=== PATIENT | female | born 1945 | race Caucasian/White ===

== ENCOUNTER 2018-09-16 21:38 | Observation (INO) ==
[2018-09-16] MEDS ORDERED: Ipratropium/Albuterol Neb 3 ML IH ONE (21:57)
[2018-09-16] MEDS ORDERED: methylPREDNISolone 125 MG/2 ML VIAL IVP ONE (22:03)
--- NOTE | 2018-09-16 22:06 | Emergency Department Note ---
Disposition Clinical Impression: Bronchitis, Pulmonary nodules, Mucus plugging of bronchi, Hypoxia Asthma with exacerbation Qualifiers: Asthma severity: unspecified severity Asthma persistence: unspecified Qualified Code(s): J45.901 - Unspecified asthma with (acute) exacerbation Dyspnea Qualifiers: Dyspnea type: unspecified Qualified Code(s): R06.00 - Dyspnea, unspecified Disposition: Admitted As Inpatient Condition: Fair Time of Disposition: 00:19 SOB HPI - General Chief Complaint: ED Shortness of Breath/Dyspnea Stated Complaint: romeo put her husbands o2 on Time Seen by Provider: 09/16/18 21:48 Source: patient Mode of arrival: wheelchair Limitations: no limitations Nursing Notes Reviewed: Yes Vital Signs Reviewed: Yes - History of Present Illness Patient is a 73-year-old female with past medical history of asthma. She presents today due to concern for shortness of breath, dry cough for the past month. She denies any smoking history, denies any COPD history, denies any history of CHF. She states that she has followed up with primary care physician 3 times over the past month. She states that she has been on a course of azithromycin, doxycycline, received Rocephin and also was recently started on c efdinir within the past week. She states that despite all these medications, she has no improvement in her symptoms. She does have albuterol at home that she uses for asthma occasionally and says that this is not helping either. She states that tonight, she borrowed her 's oxygen and has been wearing 4 L that has mildly helped with shortness of breath. She also took one tablet of his prednisone 20 mg. Denies any other leg swelling, calf pain, chest pain, fevers, nausea, vomiting, abdominal pain. She does state that she is very fatigued, especially when walking and exerting herself. - Related Data Home Medications Medication Instructions Recorded Confirmed Cetirizine HCl [Zyrtec] 10 mg PO DAILY 09/17/18 09/17/18 Furosemide [Lasix] mg PO DAILY 09/17/18 Losartan/Hydrochlorothiazide 12.5 mg PO DAILY 09/17/18 09/17/18 [Losartan-Hctz 100-12.5 mg Tab] Pantoprazole Sodium [Protonix] 40 mg PO DAILY 09/17/18 09/17/18 metFORMIN [Glucophage] 1,000 mg PO BID 09/17/18 09/17/18 Allergies Allergy/AdvReac Type Severity Reaction Status Date / Time propoxyphene [From Darvon] Allergy Difficulty Verified 09/16/18 21:40 Breathing valdecoxib [From Bextra] Allergy See Verified 09/16/18 21:40 Comments acetaminophen [From [place]] AdvReac Agitated Verified 09/16/18 21:40 cefdinir AdvReac Vomiting Verified 09/17/18 02:08 gabapentin [From Neurontin] AdvReac Drowsy Verified 09/16/18 21:40 hydrocodone [From [place]] AdvReac Agitated Verified 09/16/18 21:40 meperidine [From Demerol] AdvReac Drowsy Verified 09/16/18 21:40 tramadol AdvReac See Verified 09/16/18 21:40 Comments IVP dye Allergy See Uncoded 09/16/18 21:40 Comments lido/epi numbing nasal spray Allergy See Uncoded 09/16/18 21:40 Comments All systems ED: reviewed and negative except as stated. Constitutional: Denies: fever Cardiovascular: Denies: chest pain Respiratory: Reports: cough, dyspnea, wheezes. Denies: sputum production Gastrointestinal: Denies: abdominal pain, nausea, vomiting, diarrhea Genitourinary: Denies: urgency, dysuria Endocrine: Reports: fatigue Past Medical History - Past Medical History Attestation: Yes The following information was validated with the patient. Source: patient Medical history: Reports: diabetes, hypertension - Social History Smoking Status: Never smoker Alcohol use: Reports: none Drug use: Reports: none Physical Exam - General Limitations: no limitations General appearance: alert, other (midl to moderate resp distress) - Head Head exam: atraumatic, normocephalic, normal inspection - Eye Eye exam: Present: normal appearance, PERRL, EOMI - ENT ENT exam: normal exam, normal oropharynx, mucous membranes moist - Neck Neck exam: Present: normal inspection, full ROM, trachea midline - Chest Chest inspection: Present: normal inspection, symmetric chest wall rise - Respiratory Respiratory exam: Present: other (wheezing and rhonchi throughout) - Cardiovascular Cardiovascular exam: Present: regular rate, normal rhythm, normal heart sounds - Abdominal Exam Abdominal exam: Present: soft, Non-Tender. Absent: tenderness, distention, guarding, rebound, rigidity - Extremities Exam Extremities exam: Present: normal inspection, full ROM. Absent: tenderness, pedal edema, calf tenderness - Neurological Exam Neurological exam: Present: alert, oriented X3 - Psychiatric Psychiatric exam: Present: normal affect, normal mood - Skin Skin exam: Present: warm, dry, intact, normal color Course Course Narrative: Patient was hypertensive and satting 95% on 4L NC O2. We will continue to monitor. Otherwise, the rest of vitals within normal limits. Physical exam markos ws wheezing or rhonchi throughout all lung cuevas. Heart regular rate and rhythm. No extremity swelling or calf tenderness. Abdomen exam within normal limits. We will give the patient Solu-Medrol and DuoNeb times. We will obtain EKG, chest x-ray, basic blood work, troponin level. Patient does have some increased work of breathing but not enough to require BiPAP at this time. EKG shows sinus rhythm with right bundle branch block. No other acute ST elevation or depression. Right bundle branch block is seen on previous EKG on 12/08/2017. 23:44 no elevation white blood cell count. Troponin negative. CT noncontrast of the chest was ordered. Did not order a CTA due to patient having an iodine allergy. There are pulmonary nodules, mucous plugging. No definite pneumonia seen. Patient was reassessed. After breathing treatment she is satting 91% and becoming mildly short of breath when talking. She is placed on 2 L nasal cannula. Currently waiting on repeat blood pressure. Discussed admission for further breathing treatments and steroids. She was agreeable with this plan. We will admit for further care. I do not feel the patient likely has a PE at this time as she does have reasons to be hypoxic with bronchitis type changes, mucous plugging, and also has rhonchi and wheezing on exam. This was discussed with the hospitalist. If patient has continued symptoms despite treatment, patient may require a VQ scan for further assessment. Chest X-Ray 09/16/18 21:56 IMPRESSION: No acute cardiopulmonary findings. Unchanged moderate-sized hiatus hernia. D/ / Vicente Hodgson / Vicente Hodgson Interpreting Provider: Vicente Hodgson Chest CT 09/16/18 22:39 IMPRESSION: Mild emphysema. There are a few new pulmonary nodules, which were not clearly seen previously, the largest of which is seen in the right lower lobe. Recommend PET-CT for further characterization Scattered areas of bronchial wall thickening and mucous plugging are seen, greatest in the right lower lobe. A few band like opacities are seen suggesting subsegmental atelectasis or scar. No focal pneumonia noted. Moderate size hiatal hernia D/ / Dawit Harley MD / Dawit Harley MD Interpreting Provider: Dawit Harley MD Vital Signs Temperature 97.5 F L 09/16/18 21:40 Pulse Rate 92 09/16/18 21:40 Respiratory Rate 16 09/16/18 21:40 Blood Pressure 200/133 09/16/18 21:40 O2 Sat by Pulse Oximetry 95 09/16/18 21:40 Temperature 97.5 F L 09/16/18 21:40 Pulse Rate 94 09/16/18 22:02 Respiratory Rate 16 09/16/18 23:08 Blood Pressure 194/93 09/16/18 22:02 O2 Sat by Pulse Oximetry 97 09/16/18 23:08 Oxygen Delivery Oxygen Delivery Room Air Shortness of Breath/Dyspnea - MDM Narrative Medical decision making narrative: Patient was hypertensive and satting 95% on 4L NC O2. We will continue to monitor. Otherwise, the rest of vitals within normal limits. Physical exam shows wheezing or rhonchi throughout all lung cuevas. Heart regular rate and rhythm. No extremity swelling or calf tenderness. Abdomen exam within normal limits. We will give the patient Solu-Medrol and DuoNeb times. We will obtain EKG, chest x-ray, basic blood work, troponin level. Patient does have some increased work of breathing but not enough to require BiPAP at this time. EKG shows sinus rhythm with right bundle branch block. No other acute ST elevation or depression. Right bundle branch block is seen on previous EKG on 12/08/2017. 23:44 no elevation white blood cell count. Troponin negative. CT noncontrast of the chest was ordered. Did not order a CTA due to patient having an iodine allergy. There are pulmonary nodules, mucous plugging. No definite pneumonia seen. Patient was reassessed. After breathing treatment she is satting 91% and becoming mildly short of breath when talking. She is placed on 2 L nasal cannula. Currently waiting on repeat blood pressure. Discussed admission for further breathing treatments and steroids. She was agreeable with this plan. We will admit for further care. I do not feel the patient likely has a PE at this time as she does have reasons to be hypoxic with bronchitis type changes, mucous plugging, and also has rhonchi and wheezing on exam. This was discussed with the hospitalist. If patient has continued symptoms despite treatment, patient may require a VQ scan for further assessment. - Medical Records Medical records reviewed: Yes I reviewed the patient's medical records. - Lab Data Lab results reviewed: Yes I reviewed the patient's lab results. Result diagrams: 09/16/18 22:09 09/16/18 22:09 Lab Results 09/16/18 09/16/18 09/16/18 Range/Units 22:09 22:09 22:09 WBC 11.1 (4.3-11.1) K/mcL RBC 4.74 (3.82-4.97) M/mcL Hgb 12.6 (11.5-15.4) g/dL Hct 39.5 (35.3-44.9) % MCV 83.3 (83.0-100.0) fL MCH 26.6 L (28.0-33.3) pg MCHC 31.9 (31.6-35.5) g/dL RDW 14.3 (11.5-14.5) % Plt Count 292 (140-400) K/mcL MPV 10.7 (9.4-12.4) fL Immature Gran % 0.4 (0-4) % Seg Neutrophils % 63.7 % Lymphocytes % 25.0 % Monocytes % 4.2 % Eosinophils % 6.0 % Basophils % 0.7 % Neutrophils # 7.1 (1.6-8.9) K/mcL Lymphocytes # 2.8 (0.6-4.6) K/mcL Monocytes # 0.5 (0.0-1.3) K/mcL Eosinophils # 0.7 H (0.0-0.6) K/mcL Basophils # 0.1 (0.0-0.2) K/mcL VBG pH (7.32-7.42) pH Units VBG pCO2 (41-51) mmHg VBG pO2 (25-50) mmHg VBG HCO3 (21-27) mEq/L Sodium 136 (136-145) mEq/L Potassium 3.7 (3.5-5.1) mEq/L Chloride 104 (98-107) mEq/L Carbon Dioxide 24 (23-29) mEq/L BUN 12 (8-23) mg/dL Creatinine 0.59 L (0.60-1.20) mg/dL Est GFR ( Amer) > 60 (> 60) Est GFR (Non-Af Amer) > 60 (> 60) BUN/Creatinine Ratio 20 (6-26) Glucose 183 H (70-105) mg/dL Calculated Osmolality 286 (280-300) Lactic Acid 2.2 (0.5-2.2) mmol/L Calcium 9.4 (8.6-10.3) mg/dL Troponin I < 0.03 (< 0.04) ng/mL B-Natriuretic Peptide (Less than 100) pg/mL 09/16/18 09/16/18 Range/Units 22:09 22:35 WBC (4.3-11.1) K/mcL RBC (3.82-4.97) M/mcL Hgb (11.5-15.4) g/dL Hct (35.3-44.9) % MCV (83.0-100.0) fL MCH (28.0-33.3) pg MCHC (31.6-35.5) g/dL RDW (11.5-14.5) % Plt Count (140-400) K/mcL MPV (9.4-12.4) fL Immature Gran % (0-4) % Seg Neutrophils % % Lymphocytes % % Monocytes % % Eosinophils % % Basophils % % Neutrophils # (1.6-8.9) K/mcL Lymphocytes # (0.6-4.6) K/mcL Monocytes # (0.0-1.3) K/mcL Eosinophils # (0.0-0.6) K/mcL Basophils # (0.0-0.2) K/mcL VBG pH 7.42 (7.32-7.42) pH Units VBG pCO2 41 (41-51) mmHg VBG pO2 77 H (25-50) mmHg VBG HCO3 26 (21-27) mEq/L Sodium (136-145) mEq/L Potassium (3.5-5.1) mEq/L Chloride (98-107) mEq/L Carbon Dioxide (23-29) mEq/L BUN (8-23) mg/dL Creatinine (0.60-1.20) mg/dL Est GFR ( Amer) (> 60) Est GFR (Non-Af Amer) (> 60) BUN/Creatinine Ratio (6-26) Glucose (70-105) mg/dL Calculated Osmolality (280-300) Lactic Acid (0.5-2.2) mmol/L Calcium (8.6-10.3) mg/dL Troponin I (< 0.04) ng/mL B-Natriuretic Peptide 14 (Less than 100) pg/mL - Radiology Data Radiology results reviewed: Yes I reviewed the patient's radiology results. Chest X-Ray 09/16/18 21:56 IMPRESSION: No acute cardiopulmonary findings. Unchanged moderate-sized hiatus hernia. D/ / Vicente Hodgson / Vicente Hodgson Interpreting Provider: Vicente Hodgson Chest CT 09/16/18 22:39 IMPRESSION: Mild emphysema. There are a few new pulmonary nodules, which were not clearly seen previously, the largest of which is seen in the right lower lobe. Recommend PET-CT for further characterization Scattered areas of bronchial wall thickening and mucous plugging are seen, greatest in the right lower lobe. A few band like opacities are seen suggesting subsegmental atelectasis or scar. No focal pneumonia noted. Moderate size hiatal hernia D/ / Dawit Harley MD / Dawit Harley MD Interpreting Provider: Dawit Harley MD - EKG Data EKG attestation: Yes I reviewed and interpreted this EKG. EKG results narrative: 09/16/2018 at 21:57. Sinus tach. Rate 104. OH 148. QRS 138. QTC 498. Normal axis. No acute ST elevation or depression. EKG shows right bundle branch block. No other acute ST elevation or depression. Right bundle branch block is seen on previous EKG on 12/08/2017 Evelia - Evelia Situation: Demographics, MOA Background: Presenting Complaint, Relevant PMH, Meds, & Allergies Assessment: Vital Signs, Course and respsone to treatment, Exam Concerns, Patient/Family Expectation, Pertinant Lab Results, Outstanding Labs Recommendation: Barrier(s) to disposition, Recommendation based on pending studies, treatments, or consults Evelia Report Given to: Dr. Leonard Altamirano Repor Time: 00:19 Attestation Statement - Attestation Attestation: I have seen this patient with the resident physician, I have personally evaluated this patient. I had reviewed the chart and document dictation by the resident physician and aM in agreement with the information documented by the resident physician. Please see documentation by the resident physician for complete chart including past medical history, family medical history, review of systems, current history and physical and laboratory and imaging studies. I was present for all procedures, provided direct supervision for all procedures, was present for the entirety of all procedures and provided direct guidance during the procedures. Please see documentation by the resident physician for any procedures performed.
[2018-09-16 22:36] LABS: Basophils # 0.1 K/mcL (0.0-0.2); Basophils % 0.7 %; Eosinophils # 0.7 K/mcL (0.0-0.6); Hematocrit 39.5 % (35.3-44.9); Hemoglobin 12.6 g/dL (11.5-15.4); Immature Granulocytes % 0.4 % (0-4); Lymphocytes # 2.8 K/mcL (0.6-4.6); Mean Corpuscular HGB Conc 31.9 g/dL (31.6-35.5); Mean Corpuscular Hemoglobin 26.6 pg (28.0-33.3); Mean Corpuscular Volume 83.3 fL (83.0-100.0); Mean Platelet Volume 10.7 fL (9.4-12.4); Monocytes # 0.5 K/mcL (0.0-1.3); Monocytes % 4.2 %; Neutrophils # 7.1 K/mcL (1.6-8.9); Platelet Count 292 K/mcL (140-400); Red Blood Count 4.74 M/mcL (3.82-4.97); Red Cell Distribution Width 14.3 % (11.5-14.5); Segmented Neutrophils % 63.7 %
[2018-09-16 22:38] LABS: VBG HCO3 26 mEq/L (21-27); VBG PCO2 41 mmHg (41-51); VBG PH 7.42 pH Units (7.32-7.42); VBG PO2 77 mmHg (25-50)
[2018-09-16] MEDS ORDERED: Isovue-370 500 ML BOTTLE IVP ONE (22:39)
[2018-09-16 22:56] LABS: BUN/Creatinine Ratio 20 (6-26); Blood Urea Nitrogen 12 mg/dL (8-23); Calcium 9.4 mg/dL (8.6-10.3); Carbon Dioxide 24 mEq/L (23-29); Chloride 104 mEq/L (98-107); Glucose 183 mg/dL (70-105); Osmolality,Calculated 286 (280-300); Potassium 3.7 mEq/L (3.5-5.1); Sodium 136 mEq/L (136-145); eGFR For Non-African Americans > 60 (> 60)
[2018-09-16 22:57] LABS: Troponin I < 0.03 ng/mL (< 0.04)
--- NOTE | 2018-09-16 23:39 | Emergency Department Note ---
Disposition Clinical Impression: Asthma with exacerbation, Bronchitis Disposition: Admitted As Inpatient Condition: Fair Referrals: Bonilla Sargent DO [Primary Care Provider] - Forms: ED Satisfaction Letter General Adult HPI - General Chief complaint: ED Shortness of Breath/Dyspnea Stated complaint: romeo put her husbands o2 on Time Seen by Provider: 09/16/18 21:48 Source: patient Mode of arrival: wheelchair Limitations: no limitations - History of Present Illness Pain Scale: 0 - Related Data Previous Rx's Medication Instructions Recorded Azithromycin [Azithromycin 6-Tab 250 mg PO PER PKG DI #6 tab 07/27/17 Pack] Cefdinir [Omnicef] 300 mg PO BID #10 capsule 07/27/17 Allergies Allergy/AdvReac Type Severity Reaction Status Date / Time propoxyphene [From [place]von] Allergy Difficulty Verified 09/16/18 21:40 Breathing valdecoxib [From Bextra] Allergy See Verified 09/16/18 21:40 Comments acetaminophen [From [place]] AdvReac Agitated Verified 09/16/18 21:40 gabapentin [From Neurontin] AdvReac Drowsy Verified 09/16/18 21:40 hydrocodone [From [place]] AdvReac Agitated Verified 09/16/18 21:40 meperidine [From Demerol] AdvReac Drowsy Verified 09/16/18 21:40 tramadol AdvReac See Verified 09/16/18 21:40 Comments IVP dye Allergy See Uncoded 09/16/18 21:40 Comments lido/epi numbing nasal spray Allergy See Uncoded 09/16/18 21:40 Comments Constitutional: Denies: fever Cardiovascular: Denies: chest pain Respiratory: Reports: cough, dyspnea, wheezes. Denies: sputum production Gastrointestinal: Denies: abdominal pain, nausea, vomiting, diarrhea Genitourinary: Denies: urgency, dysuria Endocrine: Reports: fatigue Past Medical History - Past Medical History Medical history: Reports: diabetes, hypertension - Social History Smoking Status: Never smoker Alcohol use: Reports: none Drug use: Reports: none Physical Exam - General Limitations: no limitations General appearance: alert, other (midl to moderate resp distress) Course Vital Signs Temperature 97.5 F L 09/16/18 21:40 Pulse Rate 92 09/16/18 21:40 Respiratory Rate 16 09/16/18 21:40 Blood Pressure 200/133 09/16/18 21:40 O2 Sat by Pulse Oximetry 95 09/16/18 21:40 Temperature 97.5 F L 09/16/18 21:40 Pulse Rate 94 09/16/18 22:02 Respiratory Rate 16 09/16/18 23:08 Blood Pressure 194/93 09/16/18 22:02 O2 Sat by Pulse Oximetry 97 09/16/18 23:08 Oxygen Delivery Oxygen Delivery Room Air Medical Decision Making - Lab Data Result diagrams: 09/16/18 22:09 09/16/18 22:09 Lab Results 09/16/18 09/16/18 09/16/18 Range/Units 22:09 22:09 22:09 WBC 11.1 (4.3-11.1) K/mcL RBC 4.74 (3.82-4.97) M/mcL Hgb 12.6 (11.5-15.4) g/dL Hct 39.5 (35.3-44.9) % MCV 83.3 (83.0-100.0) fL MCH 26.6 L (28.0-33.3) pg MCHC 31.9 (31.6-35.5) g/dL RDW 14.3 (11.5-14.5) % Plt Count 292 (140-400) K/mcL MPV 10.7 (9.4-12.4) fL Immature Gran % 0.4 (0-4) % Seg Neutrophils % 63.7 % Lymphocytes % 25.0 % Monocytes % 4.2 % Eosinophils % 6.0 % Basophils % 0.7 % Neutrophils # 7.1 (1.6-8.9) K/mcL Lymphocytes # 2.8 (0.6-4.6) K/mcL Monocytes # 0.5 (0.0-1.3) K/mcL Eosinophils # 0.7 H (0.0-0.6) K/mcL Basophils # 0.1 (0.0-0.2) K/mcL VBG pH (7.32-7.42) pH Units VBG pCO2 (41-51) mmHg VBG pO2 (25-50) mmHg VBG HCO3 (21-27) mEq/L Sodium 136 (136-145) mEq/L Potassium 3.7 (3.5-5.1) mEq/L Chloride 104 (98-107) mEq/L Carbon Dioxide 24 (23-29) mEq/L BUN 12 (8-23) mg/dL Creatinine 0.59 L (0.60-1.20) mg/dL Est GFR ( Amer) > 60 (> 60) Est GFR (Non-Af Amer) > 60 (> 60) BUN/Creatinine Ratio 20 (6-26) Glucose 183 H (70-105) mg/dL Calculated Osmolality 286 (280-300) Lactic Acid 2.2 (0.5-2.2) mmol/L Calcium 9.4 (8.6-10.3) mg/dL Troponin I < 0.03 (< 0.04) ng/mL B-Natriuretic Peptide (Less than 100) pg/mL 09/16/18 09/16/18 Range/Units 22:09 22:35 WBC (4.3-11.1) K/mcL RBC (3.82-4.97) M/mcL Hgb (11.5-15.4) g/dL Hct (35.3-44.9) % MCV (83.0-100.0) fL MCH (28.0-33.3) pg MCHC (31.6-35.5) g/dL RDW (11.5-14.5) % Plt Count (140-400) K/mcL MPV (9.4-12.4) fL Immature Gran % (0-4) % Seg Neutrophils % % Lymphocytes % % Monocytes % % Eosinophils % % Basophils % % Neutrophils # (1.6-8.9) K/mcL Lymphocytes # (0.6-4.6) K/mcL Monocytes # (0.0-1.3) K/mcL Eosinophils # (0.0-0.6) K/mcL Basophils # (0.0-0.2) K/mcL VBG pH 7.42 (7.32-7.42) pH Units VBG pCO2 41 (41-51) mmHg VBG pO2 77 H (25-50) mmHg VBG HCO3 26 (21-27) mEq/L Sodium (136-145) mEq/L Potassium (3.5-5.1) mEq/L Chloride (98-107) mEq/L Carbon Dioxide (23-29) mEq/L BUN (8-23) mg/dL Creatinine (0.60-1.20) mg/dL Est GFR ( Amer) (> 60) Est GFR (Non-Af Amer) (> 60) BUN/Creatinine Ratio (6-26) Glucose (70-105) mg/dL Calculated Osmolality (280-300) Lactic Acid (0.5-2.2) mmol/L Calcium (8.6-10.3) mg/dL Troponin I (< 0.04) ng/mL B-Natriuretic Peptide 14 (Less than 100) pg/mL Attestation Statement - Attestation Attestation: I have seen this patient with the resident physician, I have personally evaluated this patient. I had reviewed the chart and document dictation by the resident physician and aM in agreement with the information documented by the resident physician. Please see documentation by the resident physician for complete chart including past medical history, family medical history, review of systems, current history and physical and laboratory and imaging studies. I was present for all procedures, provided direct supervision for all procedures, was present for the entirety of all procedures and provided direct guidance during the procedures. Please see documentation by the resident physician for any procedures performed. Patient presented to the emergency department with chief complaint of progressively increasing shortness of breath cough wheezing sputum production. This been going on for over a month she has been to urgent care and her doctor several times she has been on 3 different antibiotics she was on steroids to begin with and get a shot of steroids, she has been on cough medication and continues to be worse with progressively increasing shortness of breath. She denies orthopnea. She denies paroxysmal atrial dyspnea. She states she is coughing but not really coughing anything up. She states she feels like she needs to. She denies any lower extremity edema. She denies any recent travels or immobilization. She denies chest pain. On physical examination she appears mildly uncomfortable with mild tachypnea and appears fatigued, she has diffuse coarse wheezing throughout her lungs, with slightly prolonged expiratory phase. Oropharynx is normal. Heart is regular, no murmurs rubs or gallops. No JVD. Abdomen soft and nontender. There is no peripheral edema no clinical evidence of DVT and normal distal pulses skin is normal. EKG shows no acute acute changes from prior EKG, no evidence of acute ischemia, normal sinus rhythm, right bundle branch block pattern. Basic laboratory studies were all within acceptable limits. Chest x-ray showed no acute findings. After breathing treatments and steroids, she does demonstrate some improvement, but still has a significant coarse cough, with some tachypnea. A CT scan of the chest was ordered with IV contrast, however the patient is a contrast allergy, therefore a CT noncontrast was performed, which demonstrated some nonspecific nodules, no other acute significant finding other than evidence of some peribronchial thickening, with mucous plugging. Secondary to patient having already completed 3 different antibiotics, and 2 rounds of steroids and been using inhaler which she has not had use for almost 2 years, with progressive symptoms, patient will be admitted to the hospital for further evaluation and management of shortness of breath. Consideration of further evaluation with V/Q scan, at that time if she is not improving.
[2018-09-17] MEDS ORDERED: *HR* Labetalol 20 MG/4 ML SYRINGE IVP ONE (00:02)
[2018-09-17] MEDS: Levalbuterol Neb 1.25 MG/3 ML IH SCH ×4 (04:27→21:36)
[2018-09-17] MEDS ORDERED: Benzonatate 100 MG CAPSULE PO PRN (05:11)
[2018-09-17] MEDS ORDERED: Naloxone 0.4 MG/ML INJ IVP PRN (08:43)
--- NOTE | 2018-09-17 09:18 | Electrocardiograph Report ---
[place] [id number] Test Date: 2018-09-16 Pat Name: Kerri Knight Department: [id number] Room: 3B23 Gender: F [employer]ist: : [id number] Requested By: Osmin Coppola Order Number: [id number] [place] MD: Bryn Carreon Measurements Intervals Morrison Rate: 104 P: 58 AR: 148 QRS: 46 QRSD: 138 T: 56 QT: 378 QTc: 498 Interpretive Statements Sinus tachycardia Right bundle branch block Electronically Signed On 09-17-2018 9:16:50 EDT by Bryn Carreon
[2018-09-17] MEDS: Acetaminophen 325 MG TABLET PO PRN ×2 (09:52→15:56)
[2018-09-17] MEDS ORDERED: Furosemide 20 MG TABLET PO PRN (10:36)
[2018-09-17] MEDS ORDERED: NON-FORMULARY MEDICATION 1 EACH EACH (Losartan/Hydrochlorothiazide [Losartan-Hctz 100-12.5 PO SCH (10:45)
[2018-09-17] MEDS ORDERED: Lidocaine Viscous Oral Soln 15 ML SOLUTION MM PRN (10:47)
--- NOTE | 2018-09-17 11:47 | Internal Med History&Physical ---
Date of Encounter: 09/17/18 Time of Encounter: 09:45 Internal Medicine - H&P: HPI Chief complaint: Shortness of breath and cough Admitted From: Emergency Dept Plans for Post Hospital Care: Home History of present illness: Ms. Knight is a 73 year old female with a past medical history of asthma, hypertension, type 2 diabetes on oral hypoglycemics who presented to the hospital with coughing which has been going on for more than 2 weeks duration nonproductive, non-exertional and associated with difficulty in breathing. The patient states that her progressive dyspnea started a couple of days ago and yesterday got so bad that she had decided to come to the ER. Before she coming in here she took her 's oxygen which only give her partial relief. She does need that roughly about 10 days ago her primary care physician gave her a short course of steroids along with Cefdinir with only partial response to her breathing and coughing. Her coughing continues to persist and fact has gotten worse. She has denied any overt fever or chills. In the ER the patient was initially hypoxic and required 4 L of oxygen, subsequent oxygen studies were reassuring and currently the patient is breathing on room air and does not appear to be overtly dyspneic. She is able to complete full sentences and carry on a conversation but is intermittently coughing. She is not producing any sputum She also tells me that she has a history of long-standing GERD and takes PPI for a daily. She also tells me that she has a history of gastric polyps and she has undergone multiple biopsies and has been told that these are noncancerous. She denies any recent surgeries or prolonged immobilization although she did have some down time when she had an injection procedure on the left knee but that was several weeks ago In the ER she was found to be hypertensive but she had also missed her blood pressure medications. There was never a documented hypotension. Her lactic acid was briefly abnormal but subsequent studies showed that it did normalize and hence a sepsis diagnoses was not really entertained She does have a contrast allergy and hence a CT scan was done without contrast which did not show any focal consolidation but did show perihilar mild lymphadenopathy and a 10 mm nodule in the right lower lobe of the lung Rest of the imaging has been unremarkable Past Med Surg Social Fam HX - Past Medical History Medical history: arthritis, asthma, diabetes, GERD, hypertension Additional medical history: gastric ulcer - Past Surgical History Surgical History: appendectomy, cholecystectomy, hysterectomy Additional surgical history: heart cath no stents. bilateral wrists. left knee. tonsils - Social History Smoking Status: Never smoker Alcohol use: none Drug use: none - Family History Mother Hx Family Cardiac Disorders: Yes Internal Medicine - H&P: Meds Benzonatate [Tessalon] 100 mg PO TID 09/17/18 [History] Cetirizine HCl [Zyrtec] 10 mg PO DAILY 09/17/18 [History] Furosemide [Lasix] 20 mg PO DAILY PRN 09/17/18 [History] Losartan/Hydrochlorothiazide [Losartan-Hctz 100-12.5 mg Tab] 12.5 mg PO DAILY 09/17/18 [History] Pantoprazole Sodium [Protonix] 40 mg PO DAILY 09/17/18 [History] metFORMIN [Glucophage] 1,000 mg PO BID 09/17/18 [History] Allergy/AdvReac Type Severity Reaction Status Date / Time propoxyphene [From Darvon] Allergy Difficulty Verified 09/16/18 21:40 Breathing valdecoxib [From Bextra] Allergy See Verified 09/16/18 21:40 Comments acetaminophen [From [place]] AdvReac Agitated Verified 09/16/18 21:40 cefdinir AdvReac Vomiting Verified 09/17/18 02:08 gabapentin [From Neurontin] AdvReac Drowsy Verified 09/16/18 21:40 hydrocodone [From [place]] AdvReac Agitated Verified 09/16/18 21:40 meperidine [From Demerol] AdvReac Drowsy Verified 09/16/18 21:40 tramadol AdvReac See Verified 09/16/18 21:40 Comments IVP dye Allergy See Uncoded 09/16/18 21:40 Comments lido/epi numbing nasal spray Allergy See Uncoded 09/16/18 21:40 Comments All Systems PM: A 10-system review of systems was performed and is negative for pertinent findings except as documented above in the HPI. - Constitutional Vitals: Temp Pulse Resp BP Pulse Ox 98.2 F 104 17 151/89 94 09/17/18 11:14 09/17/18 11:14 09/17/18 11:14 09/17/18 11:14 09/17/18 11:14 Exam: GENERAL: Alert, moderate distress, cooperative EYES: PERRLA, EOMI EARS: External ears normal, canals clear OROPHARYNX: Lips, mucosa, and tongue normal. Teeth and gums normal. Oropharynx normal. NECK: No jugulovenous distention, No carotid bruits, Carotid pulse normal contour, Supple LUNGS: Lungs clear to auscultation, Good diaphragmatic excursion CARDIAC: Normal S1 and S2; no rubs, murmurs, or gallops ABDOMEN: Abdomen soft, mildly tender to palpation in the epigastric region, BS normal, No masses or organomegaly EXTREMITIES: Extremities normal, no deformities, edema, clubbing or skin discoloration. Good capillary refill., No ulcers NEURO: Gait not tested Reflexes normal and symmetric. Sensation grossly intact, Cranial nerves II-XII intact PULSES: 2+ radial, 2+ carotid Rest of the exam is non contributory Internal Med - H&P Results - Labs CBC & Chem 7: 09/16/18 22:09 09/16/18 22:09 Labs: Short CBC 09/16/18 Range/Units 22:09 WBC 11.1 (4.3-11.1) K/mcL Hgb 12.6 (11.5-15.4) g/dL Hct 39.5 (35.3-44.9) % Plt Count 292 (140-400) K/mcL Neutrophils # 7.1 (1.6-8.9) K/mcL BMP 09/16/18 22:09 Sodium 136 Potassium 3.7 Chloride 104 Carbon Dioxide 24 BUN 12 Creatinine 0.59 L Glucose 183 H Calcium 9.4 Cardiac Enzymes 09/16/18 Range/Units 22:09 Troponin I < 0.03 (< 0.04) ng/mL - ABG Interpretation ABG results: 09/16/18 22:35 VBG pH 7.42 VBG pCO2 41 VBG pO2 77 H VBG HCO3 26 - Impressions ITS Impressions Chest X-Ray 09/16/18 21:56 IMPRESSION: No acute cardiopulmonary findings. Unchanged moderate-sized hiatus hernia. D/ / Vicente Hodgson / Vicente Hodgson Interpreting Provider: Vicente Hodgson Chest CT 09/16/18 22:39 IMPRESSION: Mild emphysema. There are a few new pulmonary nodules, which were not clearly seen previously, the largest of which is seen in the right lower lobe. Recommend PET-CT for further characterization Scattered areas of bronchial wall thickening and mucous plugging are seen, greatest in the right lower lobe. A few band like opacities are seen suggesting subsegmental atelectasis or scar. No focal pneumonia noted. Moderate size hiatal hernia D/ / Dawit Harley MD / Dawit Harley MD Interpreting Provider: Dawit Harley MD - Diagnostic Studies CT scan - chest Status: image reviewed by me (No focal consolidation seen. Cannot comment on PE because no contrast was used) - Assessment and Plan (1) Bronchitis Current Visit: Yes Status: Acute Assessment and plan: She appears to have evidence of bronchitis at least clinically and radiologically. I will check for a respiratory viral panel as there is a strong clinical suspicion that this could be a viral infection primarily Regardless I believe she should receive a short course of azithromycin which I will start today. I will try to have her express sputum by using Xanax and holding off her benzonatate Blood cultures already been drawn in the ER and is pending Continue the steroids-she got 125 mg Solu-Medrol early this morning and her next dose is not due until tomorrow She is currently not hypoxic in fact on room air she is saturating 94-96% and my suspicion for a pulmonary embolism is low I am going to hold off on ordering a VQ scan at this point and treat her symptomatically for bronchitis I will also keep when necessary breathing treatments because they seem to be helping her (2) Dyspnea Current Visit: Yes Status: Acute Assessment and plan: Most likely as a result of bronchitis. There also seems to be more of a subjective component because her saturations are good Regardless we will continue to monitor her very closely from a respiratory standpoint Qualifiers: Dyspnea type: shortness of breath Qualified Code(s): R06.02 - Shortness of breath; R06.00 - Dyspnea, unspecified; R06.01 - Orthopnea (3) Pulmonary nodules Current Visit: Yes Status: Acute Assessment and plan: Patient has a 10 mm nodule that was found on the right lower lobe of the lung and this will need to followed up by her primary care physician. I will also made the patient aware of this and follow-up testing if any would be deferred to the primary at this point the patient does not have a history of smoking (4) Diabetes type 2, controlled Current Visit: Yes Status: Acute Assessment and plan: Stable. Continue oral hypoglycemics for now. We will monitor closely with serial Accu-Cheks Qualifiers: Diabetes mellitus alf insulin use: without petrophysical engineer use Diabetes mellitus complication status: without complication Qualified Code(s): E11.9 - Type 2 diabetes mellitus without complications (5) GERD without esophagitis Current Visit: Yes Status: Acute Assessment and plan: Continue PPI initiate Maalox - Time Spent With Patient Total time spent is greater than 50% in coordination of care (as documented) at patient's floor/unit and/or counseling patient: Greater than 35 minutes
[2018-09-17] MEDS: Azithromycin 250 MG TABLET PO SCH (12:51)
[2018-09-17] MEDS: *HR* Metformin 500 MG TABLET PO SCH ×2 (12:51→18:12)
[2018-09-17] MEDS: Losartan/HCTZ 50-12.5 TABLET PO SCH (12:52)
[2018-09-17] MEDS: Mag Hydrox/Al Hydrox/Simeth 30 ML UDC PO PRN ×2 (12:52→20:40)
[2018-09-17] MEDS: *HR* Heparin 5,000 UNIT/ML VIAL SQ SCH (18:13)
[2018-09-17 19:56] LABS: Adenovirus Not Detected (Not Detect); Bordetella Pertussis Not Detected (Not Detect); Chlamydophila pneumoniae Not Detected (Not Detect); Coronavirus 229E Not Detected (Not Detect); Coronavirus HKU1 Not Detected (Not Detect); Coronavirus NL63 Not Detected (Not Detect); Coronavirus OC43 Not Detected (Not Detect); Human Metapneumovirus Not Detected (Not Detect); Human Rhinovirus/Enterovirus Not Detected (Not Detect); Influenza A Subtype 2009 H1 Not Detected (Not Detect); Influenza A Untypeable Not Detected (Not Detect); Influenza B Not Detected (Not Detect); Mycoplasma pneumoniae Not Detected (Not Detect); Parainfluenza Virus 1 Not Detected (Not Detect); Parainfluenza Virus 2 Not Detected (Not Detect); Parainfluenza Virus 3 Not Detected (Not Detect); Parainfluenza Virus 4 Not Detected (Not Detect); Respiratory Syncytial Virus Not Detected (Not Detect)
[2018-09-18] MEDS: Acetaminophen 325 MG TABLET PO PRN ×4 (00:26→20:07)
[2018-09-18] MEDS: Levalbuterol Neb 1.25 MG/3 ML IH SCH ×2 (04:43→11:04)
[2018-09-18] MEDS: *HR* Heparin 5,000 UNIT/ML VIAL SQ SCH ×2 (04:57→16:47)
[2018-09-18] MEDS ORDERED: Benzonatate 100 MG CAPSULE PO PRN (05:16)
[2018-09-18] MEDS: Losartan/HCTZ 50-12.5 TABLET PO SCH (07:48)
[2018-09-18] MEDS: *HR* Metformin 500 MG TABLET PO SCH (07:49)
[2018-09-18] MEDS ORDERED: Loratadine 10 MG TABLET PO SCH (09:00)
[2018-09-18] MEDS ORDERED: predniSONE 20 MG TABLET PO SCH (09:00)
--- NOTE | 2018-09-18 09:34 | Internal Med Progress Note ---
<Rinku Montoya - Last Filed: 09/18/18 13:45> Hospitalist Progress Note - Encounter Date of Encounter: 09/18/18 Time of Encounter: 09:33 - Subjective Interval History: Ms. Knight is a 73 year old female with a past medical history of asthma, hypertension, type 2 diabetes on oral hypoglycemics who presented to the hospital with cough for 2 weeks. nonproductive, non-exertional and associated with difficulty in breathing. She reports that her dypsnea has progressive gotten worse. She is not on home O2 and had to use her husbands 2L O2 prior to her arrival to ED, which provided relief. She reports that she had bronchitis 1 month ago and completed Azithromycin therapy, Cefdinir without improvement. Denies any f/c/n/v. In the ER the patient was initially hypoxic and required 4 L of oxygen, subsequent oxygen studies were reassuring and and she returned to room air. Cough is without sputum. In the ER she was found to be hypertensive but she had also missed her blood pressure medications. Her lactic acid was briefly abnormal but normalize without intervention. CT chest without contrast did not show any focal consolidation but did show perihilar mild lymphadenopathy and multiple nodules including a 10 mm nodule in the right lower lobe of the lung. Today, she reports improved SOB, but continues to have cough now with sputum. Reports new onset diarrhea, watery, 4x yesterday. Tolerating PO intake. Denies acute f/c/n/v. - Exam Vitals: Temp Pulse Resp BP Pulse Ox 98.5 F 85 16 144/85 95 09/18/18 06:42 09/18/18 06:42 09/18/18 06:42 09/18/18 06:42 09/18/18 06:42 Exam: GENERAL: Alert, moderate distress, cooperative EYES: PERRLA, EOMI EARS: External ears normal, canals clear OROPHARYNX: Lips, mucosa, and tongue normal. Teeth and gums normal. Oropharynx normal. NECK: No jugulovenous distention, No carotid bruits, Carotid pulse normal contour, Supple LUNGS: Lungs clear to auscultation, Good diaphragmatic excursion CARDIAC: Normal S1 and S2; no rubs, murmurs, or gallops ABDOMEN: Abdomen soft, mildly tender to palpation in the epigastric region, BS normal, No masses or organomegaly EXTREMITIES: Extremities normal, no deformities, edema, clubbing or skin discoloration. Good capillary refill., No ulcers PULSES: 2+ radial, 2+ carotid Rest of the exam is non contributory - Assessment and Plan (1) Bronchitis Current Visit: Yes Status: Acute Assessment and Plan: 73F presents with cough now with sputum. Afebrile. CXR without acute cardiopulmonary findings. Chest CT with multiple incidelomas, recommended PET scan outpatient Continue with albuterol inhaler, duonebs, RT, flonase Continue Prednisone therapy Continue Azithromycin Expect continued improvement and plan for discharge tomorrow (2) Pulmonary nodules Current Visit: Yes Status: Acute Assessment and Plan: Incidelomas noted. Recommended outpatient PET scan when discharged. (3) Diabetes type 2, controlled Current Visit: Yes Status: Acute Assessment and Plan: Chronic and well controlled. Held metformin. Continue with SSI (4) GERD without esophagitis Current Visit: Yes Status: Acute Assessment and Plan: Chronic and stable. Continue with PPI (5) Hypertension Current Visit: Yes Status: Acute Assessment and Plan: chronic and stable. Continue with BP control with home Hyzaar DVT Prophylaxis: SubQ heparin - Time Spent with Patient Total time spent is greater than 50% in coordination of care (as documented) at patient's floor/unit and/or counseling patient: Greater than 35 minutes Plan of Care Discussed with: patient Internal Medicine: Result - Labs CBC & Chem 7: 09/16/18 22:09 09/16/18 22:09 Consult Discharge Plan - Plan Referrals: Bonilla Sragent DO [Primary Care Provider] - 09/24/18 1:00 pm <Manuelito Childs - Last Filed: 09/18/18 14:53> Hospitalist Progress Note - Encounter Date of Encounter: 09/18/18 - Exam Vitals: Temp Pulse Resp BP Pulse Ox 98.1 F 92 16 146/80 92 09/18/18 11:53 09/18/18 11:53 09/18/18 11:53 09/18/18 11:53 09/18/18 11:53 - Assessment and Plan (1) Bronchitis Current Visit: Yes Status: Acute (2) Dyspnea Current Visit: Yes Status: Acute (3) Pulmonary nodules Current Visit: Yes Status: Acute (4) Diabetes type 2, controlled Current Visit: Yes Status: Acute (5) GERD without esophagitis Current Visit: Yes Status: Acute - Time Spent with Patient Total time spent is greater than 50% in coordination of care (as documented) at patient's floor/unit and/or counseling patient: Internal Medicine: Result - Labs CBC & Chem 7: 09/16/18 22:09 09/16/18 22:09 - Attending Attestation I examined this patient and my medical decision-making was reviewed with the Resident Physician Dr. Montoya. I agree with the documented findings, disposition and treatment plan as described except to the extent set forth below. Ms. Knight is a 73 y/o F with known PMH of HTN, HLD, Obesity and Asthma pt presented to ER with cough with expectoration and worsening SOB. She was admitte d in the hospital and placed her on IV steorids and empiricla abx. Pt stated she is feeling little better today. Still on 2 lit O2 at resting. Denied any CP. Still has moderate SOB and HANNAH. Gen: A, A, O x3 Chest: Diminished BS b/l, no crackles, moderate to severe wheezing, no crackles Heart: S1S2+ RRR No murmurs a/p 1. Acute asthma exacerbation 2. Acute bronchitis 3. Acute respiratory distress her viral panel came back as negative since patient does have purulent bronchitis continue empirical antibiotic try to wean her off oxygen as she tolerates continue systemic steroids continue frequent bronchodilator therapy <Rinku Montoya - Last Filed: 09/18/18 13:45> (3) Diabetes type 2, controlled Qualifiers: Diabetes mellitus intermodal customer service insulin use: without intermodal customer service use Diabetes mellitus complication status: without complication Qualified Code(s): E11.9 - Type 2 diabetes mellitus without complications (5) Hypertension Qualifiers: Hypertension type: essential hypertension Qualified Code(s): I10 - Essential (primary) hypertension <Manuelito Childs - Last Filed: 09/18/18 14:53> (2) Dyspnea Qualifiers: Dyspnea type: shortness of breath Qualified Code(s): R06.02 - Shortness of breath; R06.00 - Dyspnea, unspecified; R06.01 - Orthopnea (4) Diabetes type 2, controlled Qualifiers: Diabetes mellitus intermodal customer service insulin use: without intermodal customer service use Diabetes mellitus complication status: without complication Qualified Code(s): E11.9 - Type 2 diabetes mellitus without complications
[2018-09-18] MEDS ORDERED: Ipratropium/Albuterol Neb 3 ML ONE (11:12)
[2018-09-18] MEDS: Ipratropium/Albuterol Neb 3 ML IH SCH ×4 (11:18→23:01)
[2018-09-18] MEDS: Azithromycin 250 MG TABLET PO SCH (11:29)
[2018-09-18] MEDS: Cetirizine HCl 5 MG/5 ML UDC PO SCH (11:30)
[2018-09-18] MEDS ORDERED: D5% in Water 1,000 ML IVC PRN (13:07)
[2018-09-18] MEDS ORDERED: *HR* Dextrose 50 % in Water (Syg) 50 ML SYRINGE IVP PRN (13:07)
[2018-09-18] MEDS ORDERED: Dextrose Gel 15 GM/37.5 ML TUBE PO PRN ×2 (13:07)
[2018-09-18] MEDS: Insulin LISPRO 300 UNITS/3 ML VIAL SQ SCH (16:46)
[2018-09-18] MEDS: predniSONE 20 MG TABLET PO SCH (16:47)
[2018-09-18] MEDS ORDERED: Insulin LISPRO 300 UNITS/3 ML VIAL SQ SCH (21:00)
[2018-09-19] MEDS: Ipratropium/Albuterol Neb 3 ML IH SCH ×2 (03:43→07:28)
[2018-09-19] MEDS: *HR* Heparin 5,000 UNIT/ML VIAL SQ SCH (05:48)
[2018-09-19 07:39] VITALS: BP 160/88
[2018-09-19] MEDS: Insulin LISPRO 300 UNITS/3 ML VIAL SQ SCH (08:50)
[2018-09-19] MEDS ORDERED: Fluticasone Propionate Nasal 50 MCG/SPRAY BOTTLE NS SCH (09:00)
[2018-09-19] MEDS ORDERED: NON-FORMULARY MEDICATION 1 EACH EACH (Pantoprazole Sodium [Protonix] 40 MG) PO SCH (09:00)
[2018-09-19] MEDS: predniSONE 20 MG TABLET PO SCH (09:20)
[2018-09-19] MEDS: Cetirizine HCl 5 MG/5 ML UDC PO SCH (09:21)
[2018-09-19] MEDS: Losartan/HCTZ 50-12.5 TABLET PO SCH (09:21)
--- NOTE | 2018-09-19 09:31 | Discharge Summary ---
<Rinku Montoya - Last Filed: 09/19/18 09:27> - NOTES TO OUTPATIENT PROVIDER Notes to Outpatient Provider: Patient with Azithromycin 250mg PO daily x 3 days, prednisone taper, duonebs Orders not resulted at time of discharge: Pending orders 09/16/18 22:23 Culture,Blood [BC] Stat Date of Encounter: 09/19/18 Time of Encounter: 09:28 - Discharge Diagnosis (1) Bronchitis Priority: Primary Status: Acute (2) Asthma exacerbation Priority: Primary Status: Acute Qualifiers: Asthma severity: unspecified severity Asthma persistence: unspecified Qualified Code(s): J45.901 - Unspecified asthma with (acute) exacerbation (3) Pulmonary nodules Priority: Secondary Status: Acute (4) Diabetes type 2, controlled Priority: Secondary Status: Acute Qualifiers: Diabetes mellitus intermediate manager insulin use: without intermediate manager use Diabetes mellitus complication status: without complication Qualified Code(s): E11.9 - Type 2 diabetes mellitus without complications (5) GERD without esophagitis Priority: Secondary Status: Acute (6) Hypertension Priority: Secondary Status: Acute Qualifiers: Hypertension type: essential hypertension Qualified Code(s): I10 - Essential (primary) hypertension Hospital course: Ms. Knight is a 73 year old female with a past medical history of asthma, hypertension, type 2 diabetes on oral hypoglycemics who presented to the [facility] with cough for 2 weeks. Cough has been without sputum, non-exertional and associated with difficulty in breathing. She reports that her dypsnea has progressive gotten worse. She is not on home O2 and had to use her husbands 2L O2 prior to her arrival to ED, which provided relief. She reports that she had bronchitis 1 month ago and completed Azithromycin therapy, Cefdinir without improvement. Denies any f/c/n/v. In the ER the patient was initially hypoxic and required 4 L of oxygen, subsequent oxygen studies were reassuring and and she returned to room air. Her lactic acid was briefly abnormal but normalize without intervention. CT chest without contrast did not show any focal consolidation but did show perihilar mild lymphadenopathy and multiple nodules including a 10 mm nodule in the right lower lobe of the lung. She has gradually returned to her baseline since her admission. For her bronchitis and asthma exacerbation, she will continue Azithromycin 250mg PO daily for 3 days, prednisone taper for 8 days, albuterol inhaler with duonebs as needed. For her incidentalomas on chest CT, she will follow up with PCP. Management discussed with patient and she is agreeable. Discharge discussed with: patient, family - Time Spent with Patient Total time spent providing and/or coordinating discharge services: Time spent: Greater than 30 minutes - Discharge Medications Prescriptions: New Ipratropium/Albuterol Neb [Duoneb] 3 ml IH [id number] #100 inhsol predniSONE [PredniSONE] 20 mg PO BIDWM 8 Days #10 tablet Azithromycin [Zithromax] 250 mg PO Q24H #3 tablet Continued Cetirizine HCl [Zyrtec] 10 mg PO DAILY Losartan/Hydrochlorothiazide [Losartan-Hctz 100-12.5 mg Tab] 1 tab PO DAILY metFORMIN [Glucophage] 1,000 mg PO BID Furosemide [Lasix] 20 mg PO DAILY PRN PRN Reason: EDEMA/LOW BP Albuterol Sulfate [Albuterol Inhaler] 2 puff IH Q4H PRN PRN Reason: Shortness Of Breath Mometasone Furoate [Nasonex] 2 spray NS QAM Multivit-Min/Iron/Folic/Lutein [Multivitamin Women 50 Plus Tab] 1 tab PO DAILY Pantoprazole Sodium [Protonix] 40 mg PO DAILY Potassium Chloride [K-Tab ER] 10 meq PO DAILY PRN PRN Reason: LOW POTASSIUM Home Medications: Albuterol Sulfate [Albuterol Inhaler] 2 puff IH Q4H PRN 09/17/18 [History] Cetirizine HCl [Zyrtec] 10 mg PO DAILY 09/17/18 [History] Furosemide [Lasix] 20 mg PO DAILY PRN 09/17/18 [History] Losartan/Hydrochlorothiazide [Losartan-Hctz 100-12.5 mg Tab] 1 tab PO DAILY 09/17/18 [History] Mometasone Furoate [Nasonex] 2 spray NS QAM 09/17/18 [History] Multivit-Min/Iron/Folic/Lutein [Multivitamin Women 50 Plus Tab] 1 tab PO DAILY 09/17/18 [History] Pantoprazole Sodium [Protonix] 40 mg PO DAILY 09/17/18 [History] Potassium Chloride [K-Tab ER] 10 meq PO DAILY PRN 09/17/18 [History] metFORMIN [Glucophage] 1,000 mg PO BID 09/17/18 [History] Azithromycin [Zithromax] 250 mg PO Q24H #3 tablet 09/19/18 [Rx] Ipratropium/Albuterol Neb [Duoneb] 3 ml IH [id number] #100 inhsol 09/19/18 [Rx] predniSONE [PredniSONE] 20 mg PO BIDWM 8 Days #10 tablet 09/19/18 [Rx] Allergies/Adverse Reactions: Allergy/AdvReac Type Severity Reaction Status Date / Time propoxyphene [From Darvon] Allergy Difficulty Verified 09/16/18 21:40 Breathing valdecoxib [From Bextra] Allergy See Verified 09/16/18 21:40 Comments acetaminophen [From Julian] AdvReac Agitated Verified 09/16/18 21:40 cefdinir AdvReac Vomiting Verified 09/17/18 02:08 gabapentin [From Neurontin] AdvReac Drowsy Verified 09/16/18 21:40 hydrocodone [From Julian] AdvReac Agitated Verified 09/16/18 21:40 lidocaine AdvReac See Verified 09/17/18 14:09 Comments loratadine [From Claritin] AdvReac See Verified 09/18/18 07:52 Comments meperidine [From Demerol] AdvReac Drowsy Verified 09/16/18 21:40 tramadol AdvReac See Verified 09/16/18 21:40 Comments IVP dye Allergy See Uncoded 09/16/18 21:40 Comments lido/epi numbing nasal spray Allergy See Uncoded 09/16/18 21:40 Comments Date of admission: 09/17/18 00:29 Primary care physician: Bonilla Sargent DO Consults: 09/17/18 02:26 Consult to [employer] [CONS] Routine Reason for SW Consult: insurance related to medications billing Discharging clinician: Rinku Montoya Anticipated date of discharge: 09/19/18 - Constitutional Vitals: Temp Pulse Resp BP Pulse Ox 97.7 F 82 18 160/88 97 09/19/18 07:33 09/19/18 07:33 09/19/18 07:33 09/19/18 07:33 09/19/18 07:33 General appearance: Present: A&O X 3 Exam: as below - Head Head exam: Present: atraumatic, normocephalic - Eye Eye exam: Present: PERRL, conjuntiva pink, sclera anicteric Pupils: Present: PERRL - Neck Neck exam general surgery: Present: supple, trachea midline. Absent: lymphadenopathy - Respiratory Respiratory exam: Present: CTAB. Absent: accessory muscle use, rales, rhonchi, wheezes - Cardiovascular Cardiovascular exam: Present: RRR, +S1, +S2. Absent: diastolic murmur, gallop, rubs, systolic murmur - GI/Abdominal GI/Abdominal exam: Present: normal bowel sounds, soft, no peritoneal signs. Absent: distended, tenderness - Extremities Exam Extremities exam: Present: warm, radial pulses palpable and symmetrical. Absent: calf tenderness, cyanotic, pedal edema - Neurological Exam Neurological exam: Present: CN II-XII intact, oriented X3, no focal deficits. Absent: pronater drift, facial droop, speech deficit - Skin Skin exam: Present: dry, intact - Patient Status Disposition: Home, Self-Care Condition: Fair Functional capacity at discharge: independent ambulation Overall status at discharge: patient is back to baseline - Discharge Instructions Instructions: Ipratropium (By breathing), Prednisone (By mouth), Azithromycin (By mouth) Follow Up With: Bonilla Sargent DO [Primary Care Provider] - 09/24/18 1:00 pm Additional Instructions: Continue Azithromycin 250mg PO daily for 3 days, prednisone as directed, and albuterol inhaler with duonebs as needed. Return to ED if symptoms worsen. Fol low up with your PCP in regards to your bronchitis and your pulmonary nodules found on your CXR and CT of chest. - Diet and Activity Activity: resume usual activities as tolerated <Manuelito Childs - Last Filed: 09/19/18 12:55> Orders not resulted at time of discharge: Pending orders 09/16/18 22:23 Culture,Blood [BC] Stat Date of Encounter: 09/19/18 - Discharge Diagnosis (1) Bronchitis Status: Acute (2) Dyspnea Status: Acute Qualifiers: Dyspnea type: shortness of breath Qualified Code(s): R06.02 - Shortness of breath; R06.00 - Dyspnea, unspecified; R06.01 - Orthopnea (3) Pulmonary nodules Status: Acute (4) Diabetes type 2, controlled Status: Acute Qualifiers: Diabetes mellitus retirement insulin use: without retirement use Diabetes mellitus complication status: without complication Qualified Code(s): E11.9 - Type 2 diabetes mellitus without complications (5) GERD without esophagitis Status: Acute Hospital course: Ms. Knight is a 73 year old female - Time Spent with Patient Total time spent providing and/or coordinating discharge services: Date of admission: 09/17/18 00:29 Primary care physician: Bonilla Sargent DO Consults: 09/17/18 02:26 Consult to [employer] [CONS] Routine Reason for SW Consult: insurance related to medications billing - Constitutional Vitals: Temp Pulse Resp BP Pulse Ox 97.7 F 82 18 160/88 95 09/19/18 07:33 09/19/18 07:33 09/19/18 07:33 09/19/18 07:33 09/19/18 10:05 - Attending Attestation I examined this patient and my medical decision-making was reviewed with the Resident Physician Dr. Montoya. I agree with the documented findings, disposition and treatment plan as described except to the extent set forth below. Ms. Knight is a 73 y/o F with known PMH of HTN, HLD, Obesity and Asthma pt presented to ER with cough with expectoration and worsening SOB. She was admitted in the hospital and placed her on IV steroids and empirical abx. Pt stated she is feeling much better today. Breathing comfortably on RA. Denied any CP.. Gen: A, A, O x3 Chest: Diminished BS b/l, no crackles, mild wheezing, no crackles Heart: S1S2+ RRR No murmurs a/p 1. Acute asthma exacerbation 2. Acute bronchitis 3. Acute respiratory distress her viral panel came back as negative switched to PO abx and PO tapering dose of steroids will d/c her home in stable condition today.
== END 2018-09-19 10:38 | disposition home or self-care (01) ==
LOC: EMEROOARM 21:38 → 3BNU 21:38 → SUATTDRO 09-17 00:29 → 3BNU 09-17 01:09
PROVIDERS: ADMIT Pediatrics; ATTEND Family Medicine